=== PATIENT | female | born 1975 | race Caucasian/White ===

== ENCOUNTER → 2017-12-15 10:22 | Outpatient (REF) | payer OTHER, SELFPAY ==
--- NOTE | 2017-12-15 08:50 | PAPFT_PTH ---
PATIENT: Lluvia Gutierres LOC: [facility] U#:[id number] AGE/SX: 49/F ROOM: RE12/15/[address]: Isabella Prajapati NP : 1975 BED: DIS: SPEC #: [id number] RECD: 12/15/17 12:58 STATUS: FRED ZAMORANO #: [id number] GUSTAVO: 12/15/17 08:[address]: Isabella Prajapati NP DEPT: [facility] Cytology RECD BY: Kelli Gar Tissues: 1 - CX/ENDOCX FOR PAP SMEARS Procedures: PAP THIN PREP/UVM Screening HPV DNA PROBE Comments: [id number]
== END ==
LOC: LBN 10:22
PROVIDERS: Visit Provider Nurse Practitioner Women's Health
DX: Z12.4 Encounter for screening for malignant neoplasm of cervix (principal); Z11.51 Encounter for screening for human papillomavirus (HPV)
CPT/HCPCS: 88142; 87624

== ENCOUNTER → 2018-01-02 00:46 | Outpatient (CLI) | payer OTHER, SELFPAY ==
--- NOTE | 2018-01-02 07:26 | DI.REPORT_ITS ---
SYMPTOM/DIAGNOSIS: SCREENING Z12.31 BILATERAL SCREENING MAMMOGRAM: Mammograms were interpreted according to the usual protocol including computer analysis with CAD system, tomosynthesis and C view imaging. Comparison is made with 2012. The breasts are composed of heterogeneously dense fibroglandular tissue , breast density category C. No suspicious masses or suspicious microcalcifications are seen. Two smoothly marginated nodules are again noted in the subareolar region of the left breast. IMPRESSION: Category 2-C, negative mammogram with benign findings. Yearly screening mammography is recommended. SA ASSESSMENT OF FINDINGS: Negative with benign findings. Category 2. Patient will receive a letter notifying them of these results. Bi-RADS category C. The breasts are heterogeneously dense, which may obscure small masses.
== END ==
PROVIDERS: Visit Provider Nurse Practitioner Women's Health
DX: Z12.31 Encounter for screening mammogram for malignant neoplasm of breast (principal)
CPT/HCPCS: 77063; 77067

== ENCOUNTER 2019-01-08 10:12 | Outpatient (CLI) | payer OTHER, SELFPAY ==
[2019-01-08 10:36] LABS: Abs Immature Grans 0.04 k/cumm (0.0-0.09); Absolute Basophil Count 0.04 k/cumm (0.0-0.2); Absolute Eosinophil Count 0.08 k/cumm (0.0-0.7); Absolute Lymphocyte Count 2.88 k/cumm (1.2-3.4); Absolute Monocyte Count 0.58 k/cumm (0.11-0.7); Absolute Neutrophil Count 5.08 k/cumm (1.2-6.7); Basophils % 0.5; Eosinophils % 0.9; HCT 43.5 % (36.0-46.0); HGB 14.5 g/dL (12.0-15.5); Immature Grans % 0.5; Lymphocytes % 33.1; Mean Corp. HGB Concentration 33.3 g/dL (32.0-36.0); Mean Corpuscular Hemoglobin 30.9 pg (27.0-33.0); Mean Corpuscular Volume 92.8 fL (80-95); Mean Platelet Volume 10.5 fL (8.0-11.0); Monocytes % 6.7; Neutrophils % 58.3; Platelet Count 256 x1000/uL (130-400); RBC 4.69 m/cumm (4.00-5.20); RBC Distribution Width 13.8 % (11.7-14.6)
[2019-01-08 11:35] LABS: ALT 24 U/L (14-59); AST 14 U/L (15-37); Albumin 3.9 g/dL (3.4-5.0); Alkaline Phosphatase 53 U/L (46-116); Bilirubin, Direct 0.21 mg/dL (0.00-0.20); Bilirubin, Total 0.7 mg/dL (0.2-1.0); C-Reactive Protein 0.05 mg/dL (0.0-0.3); Total Protein 7.3 g/dL (6.4-8.2)
== END 2019-01-08 10:32 ==
PROVIDERS: Visit Provider Internal Medicine Gastroenterology
DX: K50.00 Crohn's disease of small intestine without complications (principal)
CPT/HCPCS: 36415; 80076; 85025; 86140

== ENCOUNTER 2019-03-06 07:52 | Outpatient (CLI) | payer OTHER, SELFPAY ==
[2019-03-06 08:54] LABS: Abs Immature Grans 0.03 k/cumm (0.0-0.09); Absolute Basophil Count 0.02 k/cumm (0.0-0.2); Absolute Eosinophil Count 0.08 k/cumm (0.0-0.7); Absolute Lymphocyte Count 2.54 k/cumm (1.2-3.4); Absolute Monocyte Count 0.61 k/cumm (0.11-0.7); Absolute Neutrophil Count 5.73 k/cumm (1.2-6.7); Basophils % 0.2; Eosinophils % 0.9; HCT 43.5 % (36.0-46.0); HGB 14.6 g/dL (12.0-15.5); Immature Grans % 0.3; Lymphocytes % 28.2; Mean Corp. HGB Concentration 33.6 g/dL (32.0-36.0); Mean Corpuscular Hemoglobin 31.1 pg (27.0-33.0); Mean Corpuscular Volume 92.8 fL (80-95); Mean Platelet Volume 10.5 fL (8.0-11.0); Monocytes % 6.8; Neutrophils % 63.6; Platelet Count 305 x1000/uL (130-400); RBC 4.69 m/cumm (4.00-5.20); RBC Distribution Width 13.6 % (11.7-14.6); White Blood Cell Count 9.01 k/cumm (4.4-10.8)
[2019-03-06 10:43] LABS: ALT 25 U/L (14-59); AST 20 U/L (15-37); Albumin 4.1 g/dL (3.4-5.0); Alkaline Phosphatase 51 U/L (46-116); Bilirubin, Direct 0.15 mg/dL (0.00-0.20); Bilirubin, Total 0.6 mg/dL (0.2-1.0); Total Protein 7.5 g/dL (6.4-8.2)
[2019-03-06 11:05] LABS: C-Reactive Protein < 0.05 mg/dL (0.0-0.3)
[2019-03-06 12:15] LABS: Vitamin B12 715 pg/mL (193-986)
[2019-03-07 19:47] LABS: Adalimumab QN with Reflex Ab 12.1 mcg/mL
== END 2019-03-06 08:12 ==
PROVIDERS: Visit Provider Internal Medicine Gastroenterology
DX: E53.8 Deficiency of other specified B group vitamins (principal); K50.00 Crohn's disease of small intestine without complications; Z79.899 Other long term (current) drug therapy
CPT/HCPCS: 36415; 80076; 83520; 82607; 85025; 86140

== ENCOUNTER 2019-06-05 14:27 | Outpatient (CLI) | payer OTHER, SELFPAY ==
[2019-06-05 15:19] LABS: Abs Immature Grans 0.03 k/cumm (0.0-0.09); Absolute Basophil Count 0.03 k/cumm (0.0-0.2); Absolute Eosinophil Count 0.15 k/cumm (0.0-0.7); Absolute Lymphocyte Count 3.19 k/cumm (1.2-3.4); Absolute Monocyte Count 0.86 k/cumm (0.11-0.7); Absolute Neutrophil Count 5.41 k/cumm (1.2-6.7); Basophils % 0.3; Eosinophils % 1.6; HCT 42.4 % (36.0-46.0); HGB 14.1 g/dL (12.0-15.5); Immature Grans % 0.3 %; Mean Corp. HGB Concentration 33.3 g/dL (32.0-36.0); Mean Corpuscular Hemoglobin 30.5 pg (27.0-33.0); Mean Corpuscular Volume 91.6 fL (80-95); Mean Platelet Volume 10.7 fL (8.0-11.0); Monocytes % 8.9; Neutrophils % 55.9; Platelet Count 238 x1000/uL (130-400); RBC 4.63 m/cumm (4.00-5.20); RBC Distribution Width 13.2 % (11.7-14.6); White Blood Cell Count 9.67 k/cumm (4.4-10.8)
[2019-06-05 16:06] LABS: ALT 27 U/L (14-59); AST 17 U/L (15-37); Alkaline Phosphatase 51 U/L (46-116); Bilirubin, Total 0.7 mg/dL (0.2-1.0); Total Protein 7.4 g/dL (6.4-8.2)
[2019-06-05 16:13] LABS: C-Reactive Protein < 0.05 mg/dL (0.0-0.3)
[2019-06-08 12:01] LABS: Adalimumab QN with Reflex Ab 9.4 mcg/mL
== END 2019-06-05 14:47 ==
PROVIDERS: Visit Provider Internal Medicine Gastroenterology
DX: K50.00 Crohn's disease of small intestine without complications (principal); Z79.899 Other long term (current) drug therapy
CPT/HCPCS: 36415; 80076; 83520; 85025; 86140

== ENCOUNTER 2019-08-03 02:24 | Outpatient (CLI) | payer OTHER, SELFPAY ==
--- NOTE | 2019-08-03 06:30 | DI.MAMMO_ITS ---
EXAM: MAMMO SCREENING CLINICAL HISTORY: screening,Z12.39 TECHNIQUE: Mammograms were interpreted according to the usual protocol including computer analysis w [employer] CAD system, tomosynthesis and C-view imaging. FINDINGS: The breasts are heterogeneously dense. No dominant mass or clumped microcalcification is identified in either breast. Current examination is compared with previous examinations including December 2017 a nd there has been no gross interval change in appearance in comparison with previous studies. IMPRESSION: No specific evidence of malignancy at this time. Routine screening examinations are suggested at year ly intervals due to the family history of breast carcinoma. Category 1. Breast density, category C. BI-RADS Cat 1 - Negative. Breast Density - Category C - Heterogeneously dense.
== END 2019-08-03 02:44 ==
PROVIDERS: Visit Provider Obstetrics & Gynecology Gynecology
DX: Z12.31 Encounter for screening mammogram for malignant neoplasm of breast (principal); Z80.3 Family history of malignant neoplasm of breast
CPT/HCPCS: 77063; 77067

== ENCOUNTER 2019-08-13 10:38 | Outpatient (REF) | payer OTHER, SELFPAY ==
[2019-08-13 19:27] LABS: HGB 14.7 g/dL (12.0-15.5); Mean Corp. HGB Concentration 34.2 g/dL (32.0-36.0); Mean Corpuscular Hemoglobin 31.1 pg (27.0-33.0); Mean Corpuscular Volume 91.1 fL (80-95); Mean Platelet Volume 11.3 fL (8.0-11.0); Platelet Count 270 x1000/uL (130-400); RBC 4.72 m/cumm (4.00-5.20); RBC Distribution Width 13.5 % (11.7-14.6); White Blood Cell Count 9.01 k/cumm (4.4-10.8)
[2019-08-13 19:44] LABS: ALT 22 U/L (14-59); AST 14 U/L (15-37); Albumin 4.1 g/dL (3.4-5.0); Alkaline Phosphatase 60 U/L (46-116); Anion Gap 11.5 mmol/L (3-11); BUN 18 mg/dL (7-18); Bilirubin, Total 0.6 mg/dL (0.2-1.0); CO2 26.5 mmol/L (21.0-32.0); CREATININE 1.23 mg/dL (0.55-1.02); Chloride 104 mmol/L (98-107); Estimated GFR 47.01 (mL/min/1.73m2); Glucose 94 mg/dL (74-106); Potassium 3.8 mmol/L (3.5-5.1); Sodium 142 mmol/L (136-145); Total Protein 7.6 g/dL (6.4-8.2)
== END 2019-08-13 10:58 ==
LOC: NCHCN 10:38
PROVIDERS: PCP Nurse Practitioner Family; Visit Provider Nurse Practitioner Family
DX: R22.41 Localized swelling, mass and lump, right lower limb (principal); M79.89 Other specified soft tissue disorders
CPT/HCPCS: 80053; 85027; 85379; 85610; 85730

== ENCOUNTER 2019-08-14 12:13 | Outpatient (CLI) | payer OTHER, SELFPAY ==
[2019-08-14 15:24] LABS: INR 0.9 (0.9-1.1); Prothrombin Time 9.5 sec (9.3-11.0)
[2019-08-14 15:41] LABS: D-Dimer 986 ng/mlFEU (<500)
== END 2019-08-14 12:33 ==
PROVIDERS: PCP Nurse Practitioner Family; Visit Provider Nurse Practitioner Family
DX: R22.41 Localized swelling, mass and lump, right lower limb (principal); M79.89 Other specified soft tissue disorders
CPT/HCPCS: 36415; 85379; 85610; 85730

== ENCOUNTER 2019-08-15 11:36 | Outpatient (CLI) | payer OTHER, SELFPAY ==
--- NOTE | 2019-08-15 | DI.US_ITS ---
EXAM: US LOWER EXTREMITY VENOUS RT CLINICAL HISTORY: RT LEG SWELLING, M79.89. TECHNIQUE: Right lower extremity venous ultrasound performed using grayscale, color-flow, and spectr al Doppler analysis. COMPARISON: No exams were available for comparison FINDINGS: The right common femoral, femoral and popliteal veins demonstrate normal compressibility, augmentatio n, and color Doppler. The posterior tibial veins are patent. The greater saphenous vein is free of t hrombus. The lesser saphenous vein shows noncompressibility and thrombus extending over a length of approximately 26 cm.. No hematoma or Meza's cyst is seen. IMPRESSION: Thrombosis in the lesser saphenous vein. No evidence of DVT. DATA REPOSITORY:
== END 2019-08-15 11:56 ==
PROVIDERS: PCP Nurse Practitioner Family; Visit Provider Nurse Practitioner Family
DX: R22.41 Localized swelling, mass and lump, right lower limb (principal); I82.811 Embolism and thrombosis of superficial veins of right lower extremity; M79.89 Other specified soft tissue disorders
CPT/HCPCS: 93971

== ENCOUNTER 2019-09-07 02:05 | Outpatient (CLI) | payer OTHER, SELFPAY ==
[2019-09-07 07:47] LABS: Abs Immature Grans 0.04 k/cumm (0.0-0.09); Absolute Basophil Count 0.01 k/cumm (0.0-0.2); Absolute Eosinophil Count 0.13 k/cumm (0.0-0.7); Absolute Lymphocyte Count 2.47 k/cumm (1.2-3.4); Absolute Monocyte Count 0.67 k/cumm (0.11-0.7); Absolute Neutrophil Count 5.21 k/cumm (1.2-6.7); Basophils % 0.1; Eosinophils % 1.5; HCT 44.2 % (36.0-46.0); HGB 14.9 g/dL (12.0-15.5); Immature Grans % 0.5 %; Mean Corp. HGB Concentration 33.7 g/dL (32.0-36.0); Mean Corpuscular Volume 92.1 fL (80-95); Monocytes % 7.9; Platelet Count 269 x1000/uL (130-400); RBC Distribution Width 13.8 % (11.7-14.6); White Blood Cell Count 8.53 k/cumm (4.4-10.8)
[2019-09-07 08:41] LABS: ALT 35 U/L (14-59); AST 19 U/L (15-37); Alkaline Phosphatase 48 U/L (46-116); Bilirubin, Direct 0.17 mg/dL (0.00-0.20); Bilirubin, Total 0.7 mg/dL (0.2-1.0); Total Protein 7.6 g/dL (6.4-8.2)
[2019-09-07 08:42] LABS: C-Reactive Protein < 0.05 mg/dL (0.0-0.3)
[2019-09-07 09:18] LABS: Vitamin B12 250 pg/mL (193-986)
[2019-09-10 14:52] LABS: Adalimumab QN with Reflex Ab 12.3 mcg/mL
[2019-09-10 23:45] LABS: Calprotectin <15.6 mcg/g
[2019-09-13 05:22] LABS: 25-Hydroxy D Total 29 ng/mL; 25-Hydroxy D2 <4.0 ng/mL; 25-Hydroxy D3 29 ng/mL
== END 2019-09-07 02:25 ==
PROVIDERS: PCP Nurse Practitioner Family; Visit Provider Internal Medicine Gastroenterology
DX: E53.8 Deficiency of other specified B group vitamins (principal); K50.00 Crohn's disease of small intestine without complications; Z79.899 Other long term (current) drug therapy; R21 Rash and other nonspecific skin eruption; K90.89 Other intestinal malabsorption
CPT/HCPCS: 36415; 80076; 82306; 83520; 82607; 83993; 85025; 86140

== ENCOUNTER 2020-07-02 19:31 | Outpatient (REF) | payer OTHER, SELFPAY ==
[2020-07-02 19:38] LABS: CREATININE 0.8 mg/dL (0.55-1.02)
[2020-07-02 20:03] LABS: HCT 44.6 % (36.0-46.0); MCH 30.9 pg (27.0-33.0); MCHC 33.6 % (32.0-36.0); MCV 91.8 fL (80-95); MPV 11.2 fL (8.0-11.0); Platelet Count 278 10^3/uL (130-400); RBC 4.86 10^6/uL (3.93-5.22); RDW 13.2 % (11.7-14.6); RDW-SD 44.7 fL; WBC 9.44 10^3/uL (4.4-10.8)
== END 2020-07-02 19:32 | disposition home or self-care (01) ==
LOC: NCHCN 19:31
PROVIDERS: PCP Nurse Practitioner Family; Visit Provider Physician Assistant
DX: R22.1 Localized swelling, mass and lump, neck (principal)
CPT/HCPCS: 85027; 82565

== ENCOUNTER 2020-08-01 10:06 | Outpatient (REF) | payer OTHER, SELFPAY ==
--- NOTE | 2020-08-01 09:30 | PAPFT_PTH ---
PATIENT: Lluvia Gutierres LOC: [facility] U#:[id number] AGE/SX: 45/F ROOM: RE08/01/[address]: DEBI Carrillo : 1975 BED: DIS: 08/01/2020 SPEC #: [id number] RECD: 08/01/20 12:59 STATUS: FRED REQ #: [id number] GUSTAVO: 08/01/20 09:[address]: Mary Bar DEPT: [facility] Cytology RECD BY: Kelli Gar ENTERED: 08/01/20 12:59 SP TYPE: PAPFT OTHR DR: Fermin Matson Tissues: 1 - CX/ENDOCX FOR PAP SMEARS Procedures: PAP THIN PREP/UVM Screening HPV DNA PROBE Comments: [id number]
== END 2020-08-01 10:07 | disposition home or self-care (01) ==
LOC: LBN 10:06
PROVIDERS: PCP Nurse Practitioner Family; Visit Provider Nurse Practitioner Family
DX: Z12.4 Encounter for screening for malignant neoplasm of cervix (principal); Z11.51 Encounter for screening for human papillomavirus (HPV)
CPT/HCPCS: 88142; 87624

== ENCOUNTER 2020-08-11 02:44 | Outpatient (CLI) | payer OTHER, SELFPAY ==
--- NOTE | 2020-08-11 06:30 | DI.MAMMO_ITS ---
EXAM: MAMMO SCREENING CLINICAL HISTORY: screening,Z12.39. TECHNIQUE: Bilateral full field digital CC and MLO mammographic images were obtained with 3D tomosyn thesis and utilizing computer aided detection (CAD). COMPARISON: Prior mammograms dating back to 2011, the most recent being July 2019. FINDINGS: The fibroglandular tissue is moderately dense, this decreasing sensitivity mammogram for finding hidd en underlying lesions. In the left breast there are 2 nodular densities which appear unchanged from prior mammograms dating back to 2018. Difficult to compared 2012 study as that was not 3D. There are no malignant-appearing microcalcification groups in the region of these nodules.. However, there is a small new microcalci fication group towards the lateral aspect of the left breast located 5 centimetres in from the nipple . Recommend spot magnification view. In the opposite-right breast there is an oval noncalcified nodule in the inferior aspect best seen on the MLO view and this is unchanged from 2018. This oval noncalcified in the nodule measures 8 by 4 millimeters and is located 5 cm in from the nipple. There is also small group of microcalcifications located posteriorly in the right breast which are unchanged from previous. No new architectural distortion or skin thickening-traction. IMPRESSION: Dense bilateral fibroglandular tissue. Bilateral breast nodules. Also new microcalcification group in the left breast, lateral of center which require spot Mag views. Also recommend bilateral breast ultrasound BI-RADS Category 0 - Assessment Incomplete: Need additional imaging evaluation Breast Density - Category C - Heterogeneously dense Breast density Category C or D implies that the patient has dense breast tissue. Dense breast tissue can make it harder to find cancer on a mammogram. Dense breast tissue is also associated with an incr eased risk of breast cancer. This information about the result of the mammogram report was provided to the patient to raise their awareness. Use this report when you speak with the patient about their risks for breast cancer, which includes their family history. At that time, you may recommend additional screening tests (Ultrasoun d or MRI) as these tests may add significant information. A negative radiographic report should not delay biopsy if a dominant or clinically suspicious mass is present. Up to ten percent of cancers are not identified on mammography. A negative report may reinforce clinical impression. Adenosis and dense breasts may obscure an underlying neoplasm. False positive reports average 6 to 10%. Patient will receive a letter notifying them of these results.
== END 2020-08-11 03:04 ==
PROVIDERS: PCP Nurse Practitioner Family; Visit Provider Nurse Practitioner Family
DX: Z12.31 Encounter for screening mammogram for malignant neoplasm of breast (principal); R92.8 Other abnormal and inconclusive findings on diagnostic imaging of breast
CPT/HCPCS: 77063; 77067

== ENCOUNTER 2020-08-14 02:16 | Outpatient (CLI) | payer OTHER, SELFPAY ==
--- NOTE | 2020-08-14 | DI.US_ITS ---
EXAM: BILATERAL COMPLETE BREAST ULTRASOUND CLINICAL HISTORY: F/U MAMMO, LT BREAST NEW MICROCALCIFICATIONS. TECHNIQUE: Complete ultrasound examination of both breasts was performed including all 4 quadrants o f both breasts, both retroareolar regions, and both axillary regions. COMPARISON: Prior mammograms were reviewed. In addition today's diagnostic mammogram was reviewed. FINDINGS: There multiple ultrasound findings in both breasts which are hidden subjacent to her dense fibrogland ular tissue on mammography. LEFT BREAST: At the 3 o'clock position there is a wider than taller 9 x 5 millimeter finding which has the appeara nce of a probable hemorrhagic microcyst. At the 6 o'clock position there is a 7 x 4 millimeter finding which has the appearance of a probable hemorrhagic microcyst. At the 10 o'clock position there are 2 small findings with both have the appearance of hemorrhagic mi crocysts, both measuring approximately 3 millimeters in size. RIGHT BREAST: At the 6 o'clock position there is a 9 x 5 millimeter finding which has the appearance of a probable septated hemorrhagic microcyst and which corresponds to the nodule described on the recent mammogram. At the 7 o'clock position there is a 6 x 4 millimeter finding which has appearance of a hemorrhagic m icrocyst. At the 9 o'clock position there are 3 separate findings which have the appearance of hemorrhagic micr ocysts. The largest of these measures 5 x 4 millimeters. IMPRESSION: Multiple bilateral ultrasound findings in both breasts which are hidden subjacent or dense fibrogland ular tissue on 3D mammography. These have the appearance of probable hemorrhagic microcysts. Approp riate follow-up would be repeat ultrasound of both breasts in 6 months. However, please note that diagnostic left breast mammogram performed today reveals a group of microca lcifications that will require stereotactic biopsy.. Please see that separate mammogram report. Findings and recommendations were discussed by myself with the patient today. In addition, her provider Janna Bar was called by myself with these results and recommendations today. BI-RADS Category 4 - Suspicious Abnormality: Biopsy should be considered Breast Density - Category C - Heterogeneously dense Breast density Category C or D implies that the patient has dense breast tissue. Dense breast tissue can make it harder to find cancer on a mammogram. Dense breast tissue is also associated with an incr eased risk of breast cancer. This information about the result of the mammogram report was provided to the patient to raise their awareness. Use this report when you speak with the patient about their risks for breast cancer, which includes their family history. At that time, you may recommend additional screening tests (Ultrasoun d or MRI) as these tests may add significant information. A negative radiographic report should not delay biopsy if a dominant or clinically suspicious mass is present. Up to ten percent of cancers are not identified on mammography. A negative report may reinforce clinical impression. Adenosis and dense breasts may obscure an underlying neoplasm. False positive reports average 6 to 10%. Patient will receive a letter notifying them of these results.
--- NOTE | 2020-08-14 09:07 | DI.MAMMO_ITS ---
EXAM: DIAGNOSTIC BILATERAL MAMMOGRAM CLINICAL HISTORY: F/U MAMMO, RT BREAST NODULE AND MICROCALCIFICATIONS. TECHNIQUE: Spot views both breasts were performed including 2D spot views of left breast microcalcif ications and 3D of right breast nodule COMPARISON: Prior mammograms were reviewed. This additional imaging was performed due to findings d escribed on the recent screening mammogram of 08/11/2020. FINDINGS: Microcalcification group in the left breast exhibits some pleomorphism and will require stereotactic biopsy. Bilateral breast ultrasound performed today reveals numerous bilateral findings which can be followed in a few months time. Please see that separate ultrasound report IMPRESSION: Left breast microcalcifications which require stereotactic biopsy. Findings are recommendations were discussed by myself with the patient today. Category: 4-suspicious. Biopsy recommended. (Microcalcifications) Breast Density - Category C - Heterogeneously dense Breast density Category C or D implies that the patient has dense breast tissue. Dense breast tissue can make it harder to find cancer on a mammogram. Dense breast tissue is also associated with an incr eased risk of breast cancer. This information about the result of the mammogram report was provided to the patient to raise their awareness. Use this report when you speak with the patient about their risks for breast cancer, which includes their family history. At that time, you may recommend additional screening tests (Ultrasoun d or MRI) as these tests may add significant information. A negative radiographic report should not delay biopsy if a dominant or clinically suspicious mass is present. Up to ten percent of cancers are not identified on mammography. A negative report may reinforce clinical impression. Adenosis and dense breasts may obscure an underlying neoplasm. False positive reports average 6 to 10%. Patient will receive a letter notifying them of these results.
== END 2020-08-14 02:36 ==
PROVIDERS: PCP Nurse Practitioner Family; Visit Provider Nurse Practitioner Family
DX: Z12.13 Encounter for screening for malignant neoplasm of small intestine (principal); R92.8 Other abnormal and inconclusive findings on diagnostic imaging of breast; N60.11 Diffuse cystic mastopathy of right breast; N60.12 Diffuse cystic mastopathy of left breast; R92.0 Mammographic microcalcification found on diagnostic imaging of breast
CPT/HCPCS: 76642; 77063; 77067

== ENCOUNTER 2021-09-20 08:43 | Emergency (ER) | payer OTHER, SELFPAY ==
[2021-09-20 08:49] VITALS: BP 125/76; PULSE 86; RESP 16; TEMP 37.2; O2SAT 97
[2021-09-20 09:34] LABS: Abs Immature Grans 0.03 10^3/uL (0.0-0.06); Absolute Basophil Count 0.02 10^3/uL (0.0-0.2); Absolute Lymphocyte Count 2.73 10^3/uL (1.2-3.4); Absolute Monocyte Count 0.85 10^3/uL (0.1-0.8); Absolute Neutrophil Count 3.79 10^3/uL (1.2-6.7); Basophils % 0.3; Eosinophils % 1.3; HCT 44.3 % (36.0-46.0); HGB 14.6 g/dL (11.2-15.7); Immature Grans % 0.4; Lymphocytes % 36.3; MCH 30.6 pg (27.0-33.0); MCV 93 fL (80-95); MPV 10.7 fL (8.0-11.0); Monocytes % 11.3; Neutrophils % 50.4; Platelet Count 240 10^3/uL (130-400); RBC 4.77 10^6/uL (3.93-5.22); RDW 13.1 % (11.7-14.6); RDW-SD 44.6 fL; WBC 7.52 10^3/uL (4.4-10.8)
[2021-09-20 09:47] LABS: ALT 29 U/L (14-59); AST 17 U/L (15-37); Albumin 3.6 g/dL (3.4-5.0); Alkaline Phosphatase 60 U/L (46-116); Anion Gap 6.2 mmol/L (3-11); BUN 5 mg/dL (7-18); Bilirubin, Total 0.3 mg/dL (0.2-1.0); CO2 27.8 mmol/L (21.0-32.0); Calcium 8.8 mg/dL (8.5-10.1); Chloride 106 mmol/L (98-107); Estimated GFR 59.18 (mL/min/1.73m2); Glucose 81 mg/dL (74-106); Potassium 4.2 mmol/L (3.5-5.1); Sodium 140 mmol/L (136-145); Total Protein 7.8 g/dL (6.4-8.2)
--- NOTE | 2021-09-20 09:48 | ED.GENADUL_ITS ---
Discharge Plan Disposition Patient Disposition: HOME Condition: Stable Discharge Details Clinical Impression: Mastitis Primary Care Provider: Fermin Matson ED Provider: Kelli Ceja Home Meds and New Rx's Prescriptions: New dicloxacillin 500 mg capsule 500 mg PO QID Qty: 40 0RF Continued fluconazole 150 mg tablet 150 mg PO ONCE Qty: 2 0RF Rx Instructions: as a single dose. Repeat at end of antibiotics if necessary. mecobalamin (vitamin B12) 10,000 mcg recon soln IM .q mos 0RF colestipol 1 gram tablet 1 g PO DAILY PRN (Reason: diarrhea) 0RF Held Humira Pen 40 mg/0.8 mL pen injector kit See Rx Instructions SC .COMPLEX 0RF Hold Instructions: Resume on 10/13/21. for fever and infection Rx Instructions: inject one - 40 mg/0.8 mL pen every 2 weeks subcut Discharge Instructions Additional Instructions: warm compresses anbiotics as completed motrin 600 mg every 8 hours tylenol 650 mg every 6 hours yogurt daily while on antibiotics return with new or worsening complaints Discharge Data Discharge Date/Time-TO BE ENTERED AT DEPARTURE: 09/20/21 10:09 Medical Decision Making No abscess noted, exam consistent with likely mastitis, afebrile and nontoxic, CBC within normal limits, mildly elevated CRP, likely multifactorial with hist ory of Crohn's and infection\ We discussed the importance of the outpatient mammogram especially with patient's prior history of precancerous lesions Placed on dicloxacillin which patient received first dose in the emergency department placed on womens wellness list for f/u this week Return precautions discussed and patient expressed understanding Medical Records Medical records reviewed: Yes I reviewed the patient's medical records. Lab Data Lab results reviewed: Yes I reviewed the patient's lab results. HPI General Date/Time Provider Initiated Documentation: 09/20/21 08:44 . HPI Narrative: This 46-year-old female presents with rash and pain to left breast with reported subjective fever on and Tuesday of this week. Has not taken any antipyretics prior to arrival today. History of Crohn's and is immunosuppressed reportedly. Denies any chest pain or shortness of breath. Denies any dizziness or weakness. Does have a history of partial mastectomy secondary to pre cancerous lesion in her left breast. She had surgery performed a year ago. She actually has a follow-up mammogram in October. Related Data Home Medications Medication Instructions Recorded Confirmed adalimumab 40 mg/0.8 mL See Rx Instructions SC .COMPLEX 08/01/19 09/21/21 subcutaneous pen kit (Humira Pen) colestipol 1 gram tablet 1 g PO DAILY PRN tab 08/01/20 09/21/21 mecobalamin (vitamin B12) 10,000 mcg IM .q mos ea 08/01/20 09/21/21 mcg solution for injection dicloxacillin 500 mg capsule 500 mg PO QID #40 cap 09/20/21 09/21/21 fluconazole 150 mg tablet 150 mg PO ONCE #2 tab 09/21/21 09/21/21 Previous Rx's Medication Instructions Recorded dicloxacillin 500 mg capsule 500 mg PO QID #40 cap 09/20/21 fluconazole 150 mg tablet 150 mg PO ONCE #2 tab 09/21/21 Allergies Allergy/AdvReac Type Severity Reaction Status Date / Time codeine Allergy Itching Unverified 09/21/21 15:02 General Stated Complaint: Cellulitis MARYAM: 3 Review of Systems All systems reviewed & are unremarkable except as noted in HPI and below PFSH All Active Problems Mastitis (Acute) 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 [facility] [place]: Atypical ductal and lobular hyperplasia. Tobacco use (Chronic) 07/2019 reports 2-3 cigarettes/day. Medical History (Updated 09/20/21 @ 09:53 by AMARA Aguirre) Normal mammography 07/2019. Breast density category C. Surgical History (Updated 11/07/20 @ 07:49 by Mary Bar NP) Appendectomy 2010 Cholecystectomy 2010 Colectomy small bowel Endometrial Ablation Ligation of fallopian tube 2010 Status post partial mastectomy of left breast Family History (Updated 08/01/20 @ 08:37 by Mary Bar NP) Grandmother Breast cancer after 50 Maternal Aunt Breast cancer before 50 Maternal Aunt Colon cancer before 50 Sister Colon cancer Uterine cancer Social History (Updated 08/01/19 @ 16:36 by Makayla Sierra MD) Smoking/Tobacco Use Status: Current every day Tobacco Type: cigarettes Quit status: not considering quitting Counseling given: provider counseling Smoking risk assessment performed?: Yes Alcohol Intake: current Alcohol Intake frequency: a few times a week Alcohol type: beer Details: Does not feel that alcohol is a problem Drug use: Never Substance use type: marijuana Details: occasionally uses marijuana as a sleep aid Household members: spouse, children and other Details: Son Torres, lives at the house. Faheem Almaguer lives close by Number of Children: 2 current occupation: Works as a financial processing clerk Pets and animals: Yes Pets and animals: dog(s) Sexually active: Yes Do you feel safe at home: Yes Do you feel safe in your relationship?: Yes Female Reproductive History Menstrual Duration of menses: other (Patient had endometrial elation 2014) control method: permanent sterilization History History 2 Para 2 Hx # Term Pregnancies Multiple births Hx # Pregnancies Ectopic pregnancies AB induced Hx Number of Living Children 2 AB spontaneous Exam Const General: cooperative, comfortable and no acute distress Resp Effort & Inspection: normal respiratory effort Cardio Rate: regular rate Skin Full body images: 1. Erythema noted, no induration, tenderness noted, no fluctuance, no drainage from the areola, No mass palpated Neuro General: patient alert Course Vital Signs Vital signs: Vital Signs Temperature 37.2 C 09/20/21 08:49 Pulse 86 09/20/21 08:49 Respiratory Rate 16 09/20/21 08:49 Blood Pressure 125/76 09/20/21 08:49 Pulse Oximetry 97 09/20/21 08:49 Temperature 37.2 C 09/20/21 08:49 Temperature Source Temporal Artery Scan 09/20/21 08:49 Pulse 86 09/20/21 08:49 Respiratory Rate 16 09/20/21 08:49 Respiratory Effort Non-Labored 09/20/21 08:51 Blood Pressure 125/76 09/20/21 08:49 Blood Pressure Position Sitting 09/20/21 08:49 Pulse Oximetry 97 09/20/21 08:49 Oxygen Delivery Method Room Air 09/20/21 08:49 Oxygen Flow Rate 0 09/20/21 08:49 Pain Level 5 09/20/21 08:49 Lab/Test Results Lab/Test Results: Laboratory Tests Range/Units 09/20/21 09/20/21 09:15 09:15 WBC (4.4-10.8) 10^3/uL 7.52 RBC (3.93-5.22) 10^6/uL 4.77 Hgb (11.2-15.7) g/dL 14.6 Hct (36.0-46.0) % 44.3 MCV (80-95) fL 93 MCH (27.0-33.0) pg 30.6 MCHC (32.0-36.0) % 33.0 RDW (11.7-14.6) % 13.1 Plt Count (130-400) 10^3/uL 240 MPV (8.0-11.0) fL 10.7 Immature Gran % 0.4 Neutrophils % 50.4 Lymphocytes % 36.3 Monocytes % 11.3 Eosinophils % 1.3 Basophils % 0.3 Nucleated RBC % (0.0-0.3) % 0.0 Absolute Neutrophils (1.2-6.7) 10^3/uL 3.79 Absolute Lymphocytes (1.2-3.4) 10^3/uL 2.73 Absolute Monocytes (0.1-0.8) 10^3/uL 0.85 H Absolute Eosinophils (0.0-0.7) 10^3/uL 0.10 Absolute Basophils (0.0-0.2) 10^3/uL 0.02 Sodium (136-145) mmol/L 140 Potassium (3.5-5.1) mmol/L 4.2 Chloride (98-107) mmol/L 106 Carbon Dioxide (21.0-32.0) mmol/L 27.8 Anion Gap (3-11) mmol/L 6.2 BUN (7-18) mg/dL 5 L Creatinine (0.55-1.02) mg/dL 1.0 Estimated GFR/1.73 m2 (mL/min/1.73m2) 59.18 Glucose (74-106) mg/dL 81 Calcium (8.5-10.1) mg/dL 8.8 Total Bilirubin (0.2-1.0) mg/dL 0.3 AST (15-37) U/L 17 ALT (14-59) U/L 29 Alkaline Phosphatase (46-116) U/L 60 C-Reactive Protein (0.0-0.3) mg/dL 3.00 H Total Protein (6.4-8.2) g/dL 7.8 Albumin (3.4-5.0) g/dL 3.6 PAWSS Have you Been Recently Intoxicated or Drunk Within the Last 30 days?: No Have you Ever Experienced Previous Episodes of Alcohol Withdrawal?: No Have you ever Experienced Withdrawal Seizures?: No Have you ever Experienced Delirium Tremens(DT)s?: No Have you ever undergone Alcohol Rehabilitation Treatment (i.e, inpt ot outpatient treatment programs)?: No Have you ever Experienced Blackouts?: No Have you ever Combined Alcohol with other Downers within the last 90 days?: No Have you ever Combined Alcohol with any other Substance of Abuse during the last 90 days?: No Positive Blood Alcohol level on Presentation? [PCS.BAL]: No Evidence of Increased Autonomic Activity (i.e. HR>120, tremor, sweating, agitation, nausea)?: No Result: 0
--- NOTE | 2021-09-20 15:15 | NUR.NOTE ---
Kelli has requested the patient be evaluated for mastitis [facility]
== END 2021-09-20 10:09 | disposition home or self-care (01) ==
PROVIDERS: Emergency Provider Physician Assistant; PCP Nurse Practitioner Family
DX: N61.0 Mastitis without abscess (principal)
CPT/HCPCS: 36415; 80053; 99283; 85025; 86140

== ENCOUNTER 2022-05-11 09:35 | Emergency (ER) | payer OTHER, SELFPAY ==
[2022-05-11 09:47] VITALS: BP 121/85; PULSE 94; RESP 18; TEMP 37.1; O2SAT 98
--- NOTE | 2022-05-11 10:24 | ED.GENADUL_ITS ---
Discharge Plan Disposition Patient Disposition: Home Condition: Stable Discharge Details Clinical Impression: Hemorrhoids Primary Care Provider: None,None ED Provider: Gretchen Nixon Home Meds and New Rx's Prescriptions: New hydrocortisone 2.5 % cream with perineal applicator 1 applic NE QD-BID PRN (Reason: hemorrhoids) 7 Days Qty: 30 0RF Rx Instructions: Apply to affected area once or twice daily as needed hydrocortisone acetate 25 mg suppository 25 mg NE DAILY PRN (Reason: hemorrhoids) 7 Days Qty: 12 0RF Rx Instructions: Use as directed Continued Humira Pen 40 mg/0.8 mL pen injector kit See Rx Instructions SC .COMPLEX Hold Instructions: Resume on 10/13/21. for fever and infection Rx Instructions: inject one - 40 mg/0.8 mL pen every 2 weeks subcut mecobalamin (vitamin B12) 10,000 mcg recon soln IM .q mos colestipol 1 gram tablet 1 g PO DAILY PRN (Reason: diarrhea) albuterol sulfate [Proventil HFA] 90 mcg/actuation HFA aerosol inhaler 2 puff inhalation Q6H PRN (Reason: shortness of breath or wheezing) Qty: 8.5 0RF Discharge Instructions Instructions: Hemorrhoids (ED) Additional Instructions: Use the medications as directed. May apply lidocaine to 3-4 times a day as needed. Avoid prolonged sitting or hard surfaces. Please follow-up with general surgery or your manufacturing controller as previously discussed. Follow up with primary care provider in 3-5 days. Return to ED sooner if any worsening or concerns. Increase oral fluids. Please take Tylenol or Ibuprofen with food every 4-6 hours as needed for pain and swelling. Referrals: Joanna Hillman DO [OSTEOPATHIC DOCTOR] - 2 weeks Medical Decision Making 46-year-old female presents to the ER chief complaint of hemorrhoids and rectal pain. Patient reports that she had hemorrhoid labs approximately 8 to 9 years ago. She reports that she has noticed this for the last 3 to 4 months but recently has gotten worse she can feel it when she walks when she is sitting. She is more concerned because she is in for a cruise in 2 days and is requesting that it be lanced. Does not appear to be an incarcerated hernia is flesh-colored. Therefore I will refer patient to general surgery and or patient's GI specialist for I&D of hemorrhoid. I did give her home care and follow-up care. Hydrocortisone cream and rectal suppositories ordered patient is also requesting lidocaine. Patient was given rectal suppository here in the department, lidocaine and prescription for 2.5% cream. This text was generated using [employer] dictation system, please disregard any oddities of phrase or misspellings. HPI General Mode of arrival: ambulatory . Date/Time Provider Initiated Documentation: 05/11/22 09:38 . Limitations to Documentation: no limitations . Information obtained by: patient, RN notes reviewed and old records reviewed . HPI Narrative: 46-year-old female presents to the ER chief complaint of hemorrhoids and rectal pain. Patient reports that she had hemorrhoid labs approximately 8 to 9 years ago. She reports that she has noticed this for the last 3 to 4 months but recently has gotten worse she can feel it when she walks when she is sitting. She is more concerned because she is in for a cruise in 2 days and is requesting that it be lanced. Denies any other associated symptoms or concerns she does have a history of Crohn's disease and reports some diarrhea and recent Arvin been treated for pneumonia with antibiotics. Related Data Home Medications Medication Instructions Recorded Confirmed adalimumab 40 mg/0.8 mL See Rx Instructions subcut .COMPLEX 08/01/19 05/11/22 subcutaneous pen kit (Humira Pen) colestipol 1 gram tablet 1 g PO DAILY PRN diarrhea 08/01/20 05/11/22 mecobalamin (vitamin B12) 10,000 mcg IM .q mos 08/01/20 05/01/22 mcg solution for injection albuterol sulfate 90 mcg/actuation 2 puff inhalation Q6H PRN 04/22/22 05/11/22 aerosol inhaler (Proventil HFA) shortness of breath or wheezing #8.5 grams hydrocortisone 2.5 % topical cream 1 applic NE QD-BID PRN hemorrhoids 05/11/22 with perineal applicator 7 days #30 grams hydrocortisone acetate 25 mg 25 mg NE DAILY PRN hemorrhoids 7 05/11/22 rectal suppository days #12 ea Previous Rx's Medication Instructions Recorded albuterol sulfate 90 mcg/actuation 2 puff inhalation Q6H PRN 04/22/22 aerosol inhaler (Proventil HFA) shortness of breath or wheezing #8.5 grams hydrocortisone 2.5 % topical cream 1 applic NE QD-BID PRN hemorrhoids 05/11/22 with perineal applicator 7 days #30 grams hydrocortisone acetate 25 mg 25 mg NE DAILY PRN hemorrhoids 7 05/11/22 rectal suppository days #12 ea Allergies Allergy/AdvReac Type Severity Reaction Status Date / Time codeine Allergy Itching Unverified 05/11/22 09:50 General Stated Complaint: MOLDER PIPE COVERING MARYAM: 4 Review of Systems All systems reviewed & are unremarkable except as noted in HPI and below Gastrointestinal Gastrointestinal: Reports as per HPI, Denies abdominal pain, Denies hematochezia, Reports loose stools, Denies nausea and Denies vomiting Comments: Reports hemorrhoids PFSH All Active Problems Hemorrhoids (Acute) 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 [facility] [place] left breast stereotactic biopsy: Atypical ductal and lobular hyperplasia. Tobacco use (Chronic) 07/2019 reports 2-3 cigarettes/day. Medical History Normal mammography 07/2019. Breast density category C. Surgical History Appendectomy 2010 Cholecystectomy 2010 Colectomy small bowel Endometrial Ablation Ligation of fallopian tube 2010 Status post partial mastectomy of left breast Family History Grandmother Breast cancer after 50 Maternal Aunt Breast cancer before 50 Maternal Aunt Colon cancer before 50 Sister Colon cancer Uterine cancer Social History Smoking/Tobacco Use Status: Current every day Tobacco Type: cigarettes Quit status: not considering quitting Counseling given: provider counseling Smoking risk assessment performed?: Yes Alcohol Intake: current Alcohol Intake frequency: a few times a week Alcohol type: beer Details: Does not feel that alcohol is a problem Drug use: Never Substance use type: does not use Details: occasionally uses marijuana as a sleep aid Household members: spouse, children and other Details: Faheem Macdonald, lives at the house. Faheem Almaguer lives close by Number of Children: 2 current occupation: Works as a financial services specialist Pets and animals: Yes Pets and animals: dog(s) Sexually active: Yes Do you feel safe at home: Yes Do you feel safe in your relationship?: Yes Female Reproductive History Menstrual Duration of menses: other (Patient had endometrial elation 2014) control method: permanent sterilization History History 2 Para 2 Hx # Term Pregnancies Multiple births Hx # Pregnancies Ectopic pregnancies AB induced Hx Number of Living Children 2 AB spontaneous Exam Resp Effort & Inspection: normal respiratory effort and able to speak in complete sentences Cardio Rate: regular rate Heart Sounds: S1 normal and S2 normal GI Rectal Exam - female: normal sphincter tone and hemorrhoids (Flesh-colored marble size hemorrhoid at 7:00 smaller 1 at approximatly 4:00) Neuro General: patient alert, patient awake, patient oriented x3 and gait normal Cognition: normal cognition Speech: speech normal Course Vital Signs Vital signs: Vital Signs Temperature 37.1 C 05/11/22 09:47 Pulse 94 H 05/11/22 09:47 Respiratory Rate 18 05/11/22 09:47 Blood Pressure 121/85 05/11/22 09:47 Pulse Oximetry 98 05/11/22 09:47 Temperature 37.1 C 05/11/22 09:47 Pulse 94 H 05/11/22 09:47 Respiratory Rate 18 05/11/22 09:47 Respiratory Effort 05/11/22 09:59 Blood Pressure 121/85 05/11/22 09:47 Blood Pressure Position Sitting 05/11/22 09:47 Pulse Oximetry 98 05/11/22 09:47 Oxygen Delivery Method Room Air 05/11/22 09:47 Oxygen Flow Rate 0 05/11/22 09:47 Pain Level 6 05/11/22 09:47
[2022-05-11] MEDS: Hydrocortisone 25 MG SUPP PR (10:53)
[2022-05-11] MEDS: Lidocaine 2% Jelly 6 ML SYR TP (10:53)
== END 2022-05-11 11:05 | disposition home or self-care (01) ==
PROVIDERS: Emergency Provider Registered Nurse Emergency
DX: K64.8 Other hemorrhoids (principal)
CPT/HCPCS: 99283

== ENCOUNTER 2022-07-29 13:18 | Outpatient (REF) | payer OTHER, SELFPAY ==
[2022-07-29 21:13] LABS: Abs Immature Grans 0.02 10^3/uL (0.0-0.06); Absolute Basophil Count 0.06 10^3/uL (0.0-0.2); Absolute Eosinophil Count 0.13 10^3/uL (0.0-0.7); Absolute Lymphocyte Count 3.19 10^3/uL (1.2-3.4); Absolute Monocyte Count 0.64 10^3/uL (0.1-0.8); Absolute Neutrophil Count 4.76 10^3/uL (1.2-6.7); Basophils % 0.7; Eosinophils % 1.5; HCT 45.5 % (36.0-46.0); HGB 15.1 g/dL (11.2-15.7); Immature Grans % 0.2; Lymphocytes % 36.3; MCH 30.4 pg (27.0-33.0); MCHC 33.2 % (32.0-36.0); MCV 92 fL (80-95); MPV 11.1 fL (8.0-11.0); Monocytes % 7.3; Platelet Count 278 10^3/uL (130-400); RBC 4.96 10^6/uL (3.93-5.22); RDW 13.1 % (11.7-14.6); RDW-SD 43.9 fL
[2022-07-29 21:36] LABS: TSH (W/Ref FT4) 0.82 uIU/mL (0.36-3.74)
== END 2022-07-29 13:19 | disposition home or self-care (01) ==
LOC: LBN 13:18
PROVIDERS: Visit Provider Physician Assistant
DX: R53.83 Other fatigue (principal)
CPT/HCPCS: 84443; 85025

== ENCOUNTER 2023-04-16 10:31 | Emergency (ER) | payer OTHER, SELFPAY ==
--- NOTE | 2023-04-16 10:32 | W.ED.GENAD ---
Discharge Plan Discharge Details ED Provider: Praveen Martinez Home Meds and New Rx's Prescriptions: No Action Humira Pen 40 mg/0.8 mL pen injector kit See Rx Instructions SC .COMPLEX Hold Instructions: Resume on 10/13/21. for fever and infection Rx Instructions: inject one - 40 mg/0.8 mL pen every 2 weeks subcut omeprazole 20 mg capsule,delayed release(DR/EC) 20 mg PO DAILY Qty: 30 0RF mecobalamin (vitamin B12) 10,000 mcg recon soln IM .q mos colestipol 1 gram tablet 1 g PO DAILY PRN (Reason: diarrhea) albuterol sulfate [Proventil HFA] 90 mcg/actuation HFA aerosol inhaler 2 puff inhalation Q6H PRN (Reason: shortness of breath or wheezing) Qty: 8.5 0RF HPI General Date/Time Provider Initiated Documentation: 04/16/23 10:32. HPI Narrative: MDM Chronic conditions affecting the care of the patient: [] History obtained from an outside historian: [] External record review: [] Diagnostic interpretations performed by me: Per my independent interpretation chest x-ray shows: Per my independent interpretation EKG shows: Medications: [] Social determinants of health affecting disposition: [] Management discussed with: [] Treatment/interventions considered: [] Response to therapies provided: [] HPI [ ] Exam General: Well-appearing in no acute distress speaking in complete sentences. Head: Normocephalic, atraumatic. Eye:[Pupils equal, round reactive to light.] Extraocular eye movements intact. No conjunctival injection. No scleral icterus. Ear, nose, mouth, throat: Grossly normal inspection. Normal voice, handling secretions normally. Neck: Trachea midline. Cardiovascular: Well-perfused distal extremities. Respiratory: Nonlabored respiration. Gastrointestinal: Nondistended abdomen. Musculoskeletal: No edema. Moving all 4 extremities spontaneously. Skin: Normal for age and race, grossly normal temperature and turgor. No acute rash. Neurologic: Alert and appropriate, no apparent acute deficits. Psychiatric: Mood and manner are appropriate. Grooming and personal hygiene are appropriate. Related Data Home Medications Medication Instructions Recorded Confirmed adalimumab 40 mg/0.8 mL See Rx Instructions subcut .COMPLEX 08/01/19 07/29/22 subcutaneous pen kit (Humira Pen) colestipol 1 gram tablet 1 g PO DAILY PRN diarrhea 08/01/20 07/29/22 mecobalamin (vitamin B12) 10,000 mcg IM .q mos 08/01/20 07/29/22 mcg solution for injection albuterol sulfate 90 mcg/actuation 2 puff inhalation Q6H PRN 04/22/22 07/29/22 aerosol inhaler (Proventil HFA) shortness of breath or wheezing #8.5 grams omeprazole 20 mg capsule,delayed 20 mg PO DAILY #30 caps 07/29/22 07/29/22 release Previous Rx's Medication Instructions Recorded albuterol sulfate 90 mcg/actuation 2 puff inhalation Q6H PRN 04/22/22 aerosol inhaler (Proventil HFA) shortness of breath or wheezing #8.5 grams omeprazole 20 mg capsule,delayed 20 mg PO DAILY #30 caps 07/29/22 release Allergies Allergy/AdvReac Type Severity Reaction Status Date / Time codeine Allergy Itching Unverified 07/29/22 11:47 General MARYAM: 4 PFSH All Active Problems 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 [facility] [place] left breast stereotactic biopsy: Atypical ductal and lobular hyperplasia. Tobacco use (Chronic) 07/2019 reports 2-3 cigarettes/day. Medical History Normal mammography 07/2019. Breast density category C. Surgical History Appendectomy 2010 Cholecystectomy 2010 Colectomy small bowel Endometrial Ablation Ligation of fallopian tube 2010 Status post partial mastectomy of left breast Family History Grandmother Breast cancer after 50 Maternal Aunt Breast cancer before 50 Maternal Aunt Colon cancer before 50 Sister Colon cancer Uterine cancer Social History Smoking/Tobacco Use Status: Current every day Tobacco Type: cigarettes Quit status: not considering quitting Counseling given: provider counseling Smoking risk assessment performed?: Yes Alcohol Intake: current Alcohol Intake frequency: a few times a week Alcohol type: beer Details: Does not feel that alcohol is a problem Drug use: Never Substance use type: does not use Details: occasionally uses marijuana as a sleep aid Household members: spouse, children and other Details: Son Torres, lives at the house. Son Tripp lives close by Number of Children: 2 current occupation: Works as a financial sales assistant Pets and animals: Yes Pets and animals: dog(s) Sexually active: Yes Do you feel safe at home: Yes Do you feel safe in your relationship?: Yes Female Reproductive History Menstrual Duration of menses: other (Patient had endometrial elation 2014) control method: permanent sterilization History History 2 Para 2 Hx # Term Pregnancies Multiple births Hx # Pregnancies Ectopic pregnancies AB induced Hx Number of Living Children 2 AB spontaneous
[2023-04-16 10:35] VITALS: BP 135/89; PULSE 80; RESP 20; TEMP 37.2; O2SAT 99
--- NOTE | 2023-04-16 10:35 | W.EDPROG ---
Date of service: 04/16/23 Time of Service: 10:35 Medical Decision Making I had initially signed up to evaluate this patient but I did not see her nor participate in her care. Discharge Plan Discharge Details ED Provider: Provider,Temporary Home Meds and New Rx's Prescriptions: No Action Humira Pen 40 mg/0.8 mL pen injector kit See Rx Instructions SC .COMPLEX Hold Instructions: Resume on 10/13/21. for fever and infection Rx Instructions: inject one - 40 mg/0.8 mL pen every 2 weeks subcut omeprazole 20 mg capsule,delayed release(DR/EC) 20 mg PO DAILY Qty: 30 0RF mecobalamin (vitamin B12) 10,000 mcg recon soln IM .q mos colestipol 1 gram tablet 1 g PO DAILY PRN (Reason: diarrhea) albuterol sulfate [Proventil HFA] 90 mcg/actuation HFA aerosol inhaler 2 puff inhalation Q6H PRN (Reason: shortness of breath or wheezing) Qty: 8.5 0RF
--- NOTE | 2023-04-16 11:04 | ED.GENADUL_ITS ---
Discharge Plan Disposition Patient Disposition: Home Discharge Details Clinical Impression: COVID Primary Care Provider: Jude Barth ED Provider: Soy Holloway Home Meds and New Rx's Prescriptions: Continued Humira Pen 40 mg/0.8 mL pen injector kit See Rx Instructions SC .COMPLEX Hold Instructions: Resume on 10/13/21. for fever and infection Rx Instructions: inject one - 40 mg/0.8 mL pen every 2 weeks subcut omeprazole 20 mg capsule,delayed release(DR/EC) 20 mg PO DAILY Qty: 30 0RF Hold Instructions: Pt Stopped/Never Started mecobalamin (vitamin B12) 10,000 mcg recon soln 10,000 mcg IM .q mos colestipol 1 gram tablet 1 g PO DAILY PRN (Reason: diarrhea) albuterol sulfate [Proventil HFA] 90 mcg/actuation HFA aerosol inhaler 2 puff inhalation Q6H PRN (Reason: shortness of breath or wheezing) Qty: 8.5 0RF Discharge Instructions Instructions: COVID-19 (Coronavirus Disease 2019) (ED) Additional Instructions: At this time I feel that your headache is secondary to your viral infection. Please stay well-hydrated and get plenty of rest during your illness. It is recommended that you quarantine due to a positive COVID test and until Tuesday and then wear a mask for at least 5 additional days when you are around others. Take the provided Paxlovid as directed on packaging and return to the emergency department for any new or significant worsening of symptoms otherwise follow-up with your primary care provider if not improving in the next week. Contact your GI doctor to discuss your Humira injections and additional scheduling given your positive result. Referrals: Jude Barth [Primary Care Provider] - 1 week (If not improving) Discharge Data Discharge Date/Time-TO BE ENTERED AT DEPARTURE: 04/16/23 12:52 Medical Decision Making Patient presenting the emergency department for chief complaint of headache. Patient states that on morning she woke up not feeling well. She initially tested negative for COVID but later that day symptoms increased and she retested and then was positive. Patient states standard cold symptoms but increase headache. Patient has any focal neurological symptoms. Exam is noncontributory, stable vital signs. Patient does have contributing past medical history of Crohn's on immunosuppressants. She has been taking Tylenol and acetaminophen with minimal relief. Given that patient is immunosuppressed and review of previous labs show borderline GFR for Paxlovid dosing will check patient's labs and pending those results we will give patient IV fluids and Decadron to see if this helps with her headache. Patient had just taken [id number] just prior to arrival so we will wait on any additional analgesia. Reviewed patient's labs and CBC shows all findings within normal limits, CMP shows slightly elevated chloride and creatinine with slightly low calcium but these findings I feel are nondiagnostic and negligible. Magnesium is slightly low at 1.6 so we will replete orally. Patient's GFR is 61 so she was ordered standard dose of Paxlovid. Reassessed patient after fluids and Decadron. She states minimal relief but no significant worsening of symptoms. Discussed conservative management of viral symptoms along with return and follow-up precautions. Patient will continue Paxlovid for full course at home and was given to go pack. After discussion of diagnosis and plan of care patient has no further needs, questions, or concerns and states clear understanding to return to the emergency department for any worsening symptoms. This documentation was generated using [employer] dictation system, please disregard any oddities of phrase or misspellings. Lab Data Lab results reviewed: Yes I reviewed the patient's lab results. HPI General Mode of arrival: ambulatory . Date/Time Provider Initiated Documentation: 04/16/23 10:32 . Limitations to Documentation: no limitations . Information obtained by: patient and RN notes reviewed . History of Present Illness 47 year old F presents to the emergency department with the chief complaint of Headache, described as moderate, Quality is described as aching, and is localized to the head. Patient started experiencing this day(s) (3) and it has been constant. No relieving factors improve symptom(s), No exacerbating factors reported . Patient did receive the following treatments prior to arrival, NSAID Related Data Home Medications Medication Instructions Recorded Confirmed adalimumab 40 mg/0.8 mL See Rx Instructions subcut .COMPLEX 08/01/19 04/16/23 subcutaneous pen kit (Humira Pen) colestipol 1 gram tablet 1 g PO DAILY PRN diarrhea 08/01/20 04/16/23 mecobalamin (vitamin B12) 10,000 10,000 mcg IM .q mos 03/19/21 12/02/23 mcg solution for injection albuterol sulfate 90 mcg/actuation 2 puff inhalation Q6H PRN 04/22/22 04/16/23 aerosol inhaler (Proventil HFA) shortness of breath or wheezing #8.5 grams omeprazole 20 mg capsule,delayed 20 mg PO DAILY #30 caps 07/29/22 04/16/23 release Previous Rx's Medication Instructions Recorded albuterol sulfate 90 mcg/actuation 2 puff inhalation Q6H PRN 04/22/22 aerosol inhaler (Proventil HFA) shortness of breath or wheezing #8.5 grams omeprazole 20 mg capsule,delayed 20 mg PO DAILY #30 caps 07/29/22 release Allergies Allergy/AdvReac Type Severity Reaction Status Date / Time codeine Allergy Itching Unverified 04/16/23 10:38 General Stated Complaint: RespSymp MARYAM: 4 Review of Systems Constitutional Constitutional: Reports fever(s), Reports headache(s) and Reports malaise Eyes Eyes: Denies eye discharge ENT Ears, Nose, Mouth, and Throat: Reports headache(s), Reports nasal congestion, Denies neck pain and Denies throat swelling Cardiovascular Cardiovascular: Denies chest pain and Denies dyspnea Respiratory Respiratory: Denies cough and Denies dyspnea Musculoskeletal Musculoskeletal: Denies joint swelling and Denies neck pain Integumentary/Breasts Skin/Breast: Denies rash Neurologic Neurologic: Reports headache(s) Allergic/Immunologic Allergic/Immunologic: Denies throat swelling PFSH All Active Problems COVID (Acute) Menorrhagia with regular cycle (Acute 03/18/15) s/p Novasure EM ablation 03/2015 Crohn's disease (Chronic 08/05/14) 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 [facility] [place] breast stereotactic biopsy: Atypical ductal and lobular hyperplasia. Tobacco use (Chronic) 07/2019 reports 2-3 cigarettes/day. Medical History Normal mammography 07/2019. Breast density category C. Surgical History Status post partial mastectomy of left breast Ligation of fallopian tube 2010 Endometrial Ablation Colectomy small bowel Cholecystectomy 2010 Appendectomy 2009 Family History Grandmother Breast cancer after 50 Maternal Aunt Breast cancer before 50 Maternal Aunt Colon cancer before 50 Sister Colon cancer Uterine cancer Social History Smoking/Tobacco Use Status: Current every day Tobacco Type: cigarettes Quit status: not considering quitting Counseling given: provider counseling Smoking risk assessment performed?: Yes Alcohol Intake: current Alcohol Intake frequency: a few times a week Alcohol type: beer Details: Does not feel that alcohol is a problem Drug use: Never Substance use type: does not use Details: occasionally uses marijuana as a sleep aid Household members: spouse, children and other Details: Son Torres, lives at the house. Son Tripp lives close by Housing: apartment Number of Children: 2 current occupation: Works as a financial systems administrator Pets and animals: Yes Pets and animals: dog(s) Sexually active: Yes Do you feel safe at home: Yes Do you feel safe in your relationship?: Yes Female Reproductive History Menstrual Duration of menses: other (Patient had endometrial elation 2014) control method: permanent sterilization History History 2 Para 2 Hx # Term Pregnancies Multiple births Hx # Pregnancies Ectopic pregnancies AB induced Hx Number of Living Children 2 AB spontaneous Exam Const General: cooperative, comfortable and no acute distress Orientation: alert and awake HENMT Head: normal to inspection, normocephalic and atraumatic Ears: hearing grossly normal bilaterally and TM's normal bilaterally General nose exam: external nose normal Face and sinus: no erythema and sinus tenderness ethmoid and maxillary Mouth: oral mucosae normal, no drooling, no muffled voice and no trismus Throat: posterior oropharynx normal Neck Neck: normal visual inspection, full ROM, no meningeal signs, trachea midline and supple Resp Effort & Inspection: normal respiratory effort and able to speak in complete sentences Auscultation: clear to auscultation bilaterally Cardio Rate: regular rate Rhythm: regular rhythm Heart Sounds: S1 normal, S2 normal, normal S1 and S2, no click, no gallops, no murmurs and no rubs Skin General skin exam: no rashes or lesions noted and dry skin (warm) Neuro General: patient alert, patient awake, patient oriented x3, gait normal, moves all extremities, no meningeal signs and CN's II-XI intact bilaterally Cognition: normal cognition Speech: speech normal Course Vital Signs Vital signs: Vital Signs Temperature 37.2 C 04/16/23 10:35 Pulse 80 04/16/23 10:35 Respiratory Rate 20 04/16/23 10:35 Blood Pressure 135/89 04/16/23 10:35 Pulse Oximetry 99 04/16/23 10:35 Temperature 37.2 C 04/16/23 10:35 Pulse 80 04/16/23 10:35 Respiratory Rate 20 04/16/23 10:35 Respiratory Effort Normal 04/16/23 10:41 Blood Pressure 135/89 04/16/23 10:35 Blood Pressure Position Sitting 04/16/23 10:35 Pulse Oximetry 99 04/16/23 10:35 Oxygen Delivery Method Room Air 04/16/23 10:35 Oxygen Flow Rate 0 04/16/23 10:35 Pain Level 8 04/16/23 10:35
[2023-04-16] MEDS: Normal Saline 1,000 ML 1000 ML IV (11:12)
[2023-04-16] MEDS: Dexamethasone 10 MG/ML VIAL IVP (11:12)
[2023-04-16 11:17] LABS: Abs Immature Grans 0.01 10^3/uL (0.0-0.06); Absolute Basophil Count 0.03 10^3/uL (0.0-0.2); Absolute Eosinophil Count 0.03 10^3/uL (0.0-0.7); Absolute Lymphocyte Count 2.75 10^3/uL (1.2-3.4); Absolute Monocyte Count 0.56 10^3/uL (0.1-0.8); Absolute Neutrophil Count 1.76 10^3/uL (1.2-6.7); Basophils % 0.6; Eosinophils % 0.6; HCT 44.1 % (36.0-46.0); HGB 14.3 g/dL (11.2-15.7); Immature Grans % 0.2; Lymphocytes % 53.5; MCH 30.1 pg (27.0-33.0); MCHC 32.4 % (32.0-36.0); MCV 93 fL (80-95); MPV 10.8 fL (8.0-11.0); Monocytes % 10.9; Neutrophils % 34.2; Platelet Count 214 10^3/uL (130-400); RBC 4.75 10^6/uL (3.93-5.22); RDW 13.3 % (11.7-14.6); RDW-SD 45.5 fL; WBC 5.14 10^3/uL (4.4-10.8)
[2023-04-16 11:32] LABS: ALT 32 U/L (14-59); AST 18 U/L (15-37); Albumin 3.5 g/dL (3.4-5.0); Alkaline Phosphatase 60 U/L (46-116); Anion Gap 7.6 mmol/L (3-11); BUN 12 mg/dL (7-18); Bilirubin, Total 0.2 mg/dL (0.2-1.0); CO2 25.4 mmol/L (21.0-32.0); CREATININE 1.1 mg/dL (0.55-1.02); Calcium 8.4 mg/dL (8.5-10.1); Chloride 109 mmol/L (98-107); Glucose 97 mg/dL (74-106); Magnesium 1.6 mg/dL (1.8-2.4); Potassium 3.7 mmol/L (3.5-5.1); Sodium 142 mmol/L (136-145); Total Protein 7.3 g/dL (6.4-8.2)
[2023-04-16] MEDS: Magnesium Oxide 400 MG TAB PO (11:57)
== END 2023-04-16 12:52 | disposition home or self-care (01) ==
PROVIDERS: Emergency Provider Nurse Practitioner Family; PCP Physician Assistant
DX: U07.1 COVID-19 (principal); Z11.52 Encounter for screening for COVID-19; R50.9 Fever, unspecified; F17.200 Nicotine dependence, unspecified, uncomplicated; K50.90 Crohn's disease, unspecified, without complications
CPT/HCPCS: 00123; 36415; 80053; 96361; 96374; 99284; 83735; 85025; 99283; J1100

== ENCOUNTER 2023-08-09 12:09 | Outpatient (CLI) | payer OTHER, SELFPAY ==
[2023-08-09 11:10] LABS: Abs Immature Grans 0.04 10^3/uL (0.0-0.06); Absolute Basophil Count 0.06 10^3/uL (0.0-0.2); Absolute Eosinophil Count 0.11 10^3/uL (0.0-0.7); Absolute Lymphocyte Count 2.92 10^3/uL (1.2-3.4); Absolute Monocyte Count 0.55 10^3/uL (0.1-0.8); Absolute Neutrophil Count 5.27 10^3/uL (1.2-6.7); Basophils % 0.7; Eosinophils % 1.2; HCT 46.4 % (36.0-46.0); HGB 15.2 g/dL (11.2-15.7); Immature Grans % 0.4; Lymphocytes % 32.6; MCH 30.8 pg (27.0-33.0); MCHC 32.8 % (32.0-36.0); MCV 94 fL (80-95); MPV 9.9 fL (8.0-11.0); Monocytes % 6.1; Platelet Count 336 10^3/uL (130-400); RBC 4.94 10^6/uL (3.93-5.22); RDW 13.2 % (11.7-14.6); RDW-SD 45.8 fL; WBC 8.95 10^3/uL (4.4-10.8)
[2023-08-09 11:46] LABS: ALT 24 U/L (14-59); AST 17 U/L (15-37); Albumin 3.8 g/dL (3.4-5.0); Alkaline Phosphatase 80 U/L (46-116); Bilirubin, Direct 0.1 mg/dL (0.0-0.2); Bilirubin, Total 0.4 mg/dL (0.2-1.0); Total Protein 8.2 g/dL (6.4-8.2)
[2023-08-09 11:48] LABS: C-Reactive Protein < 0.50 mg/dL (<or=0.5)
== END 2023-08-09 12:10 | disposition home or self-care (01) ==
LOC: LBO 12:11
PROVIDERS: PCP Physician Assistant; Visit Provider Internal Medicine Gastroenterology
DX: K50.019 Crohn's disease of small intestine with unspecified complications (principal); Z79.899 Other long term (current) drug therapy
CPT/HCPCS: 36415; 80076; 85025; 86140

== ENCOUNTER 2023-09-12 18:21 | Outpatient (CLI) | payer OTHER, SELFPAY ==
[2023-09-12 10:56] LABS: Abs Immature Grans 0.06 10^3/uL (0.0-0.06); Absolute Basophil Count 0.05 10^3/uL (0.0-0.2); Absolute Eosinophil Count 0.18 10^3/uL (0.0-0.7); Absolute Lymphocyte Count 2.63 10^3/uL (1.2-3.4); Absolute Neutrophil Count 8.35 10^3/uL (1.2-6.7); Basophils % 0.4; Eosinophils % 1.5; HCT 45.6 % (36.0-46.0); HGB 14.8 g/dL (11.2-15.7); Immature Grans % 0.5; Lymphocytes % 21.8; MCH 30.2 pg (27.0-33.0); MCHC 32.5 % (32.0-36.0); MCV 93 fL (80-95); MPV 10.2 fL (8.0-11.0); Monocytes % 6.6; Neutrophils % 69.2; Platelet Count 247 10^3/uL (130-400); RDW 13.4 % (11.7-14.6); RDW-SD 45.9 fL; WBC 12.06 10^3/uL (4.4-10.8)
[2023-09-12 11:38] LABS: ALT 26 U/L (14-59); AST 16 U/L (15-37); Albumin 3.6 g/dL (3.4-5.0); Alkaline Phosphatase 75 U/L (46-116); Bilirubin, Direct 0.1 mg/dL (0.0-0.2); Bilirubin, Total 0.4 mg/dL (0.2-1.0); C-Reactive Protein 1.66 mg/dL (<or=0.5); Total Protein 7.9 g/dL (6.4-8.2)
== END 2023-09-12 18:22 | disposition home or self-care (01) ==
LOC: LBO 18:23
PROVIDERS: PCP Physician Assistant; Visit Provider Internal Medicine Gastroenterology
DX: K50.019 Crohn's disease of small intestine with unspecified complications (principal); Z79.899 Other long term (current) drug therapy
CPT/HCPCS: 36415; 80076; 85025; 86140

== ENCOUNTER 2024-02-14 10:48 | Outpatient (CLI) | payer OTHER, SELFPAY ==
[2024-02-14 11:09] LABS: Abs Immature Grans 0.03 10^3/uL (0.0-0.06); Absolute Basophil Count 0.04 10^3/uL (0.0-0.2); Absolute Eosinophil Count 0.17 10^3/uL (0.0-0.7); Absolute Lymphocyte Count 2.98 10^3/uL (1.2-3.4); Absolute Monocyte Count 0.56 10^3/uL (0.1-0.8); Absolute Neutrophil Count 5.77 10^3/uL (1.2-6.7); Basophils % 0.4 %; Eosinophils % 1.8 %; HCT 45.6 % (36.0-46.0); Immature Grans % 0.3 %; Lymphocytes % 31.2 %; MCH 30.7 pg (27.0-33.0); MCHC 32.9 % (32.0-36.0); MCV 93 fL (80-95); MPV 10.6 fL (8.0-11.0); Monocytes % 5.9 %; Neutrophils % 60.4 %; Platelet Count 277 10^3/uL (130-400); RBC 4.88 10^6/uL (3.93-5.22); RDW 13.4 % (11.7-14.6); RDW-SD 45.8 fL; WBC 9.55 10^3/uL (4.4-10.8)
[2024-02-14 12:07] LABS: ALT 23 U/L (14-59); AST 17 U/L (15-37); Albumin 3.7 g/dL (3.4-5.0); Alkaline Phosphatase 82 U/L (46-116); Bilirubin, Direct 0.1 mg/dL (0.0-0.2); Bilirubin, Total 0.62 mg/dL (0.2-1.0); Total Protein 7.8 g/dL (6.4-8.2)
[2024-02-14 12:08] LABS: C-Reactive Protein < 0.50 mg/dL (<or=0.5)
[2024-02-14 12:31] LABS: ALT 22 U/L (14-59); AST 16 U/L (15-37); Albumin 3.8 g/dL (3.4-5.0); Alkaline Phosphatase 85 U/L (46-116); Anion Gap 10.8 mmol/L (3-11); BUN 13 mg/dL (7-18); Bilirubin, Total 0.63 mg/dL (0.2-1.0); CO2 26.2 mmol/L (21.0-32.0); Calcium 9.3 mg/dL (8.5-10.1); Chloride 102 mmol/L (98-107); Estimated GFR 68.63 (mL/min/1.73m2); Glucose 99 mg/dL (74-106); Potassium 3.7 mmol/L (3.5-5.1); Sodium 139 mmol/L (136-145); TSH 0.82 uIU/Ml (0.36-3.74); Total Protein 7.8 g/dL (6.4-8.2); Vitamin D 25 Total 33.7 ng/mL (30-100)
[2024-02-14 13:11] LABS: FREE T4 0.95 ng/dL (0.76-1.46)
== END 2024-02-14 10:49 | disposition home or self-care (01) ==
LOC: LBO 10:50
PROVIDERS: PCP Physician Assistant; Visit Provider Internal Medicine Gastroenterology
DX: Z00.00 Encounter for general adult medical examination without abnormal findings (principal); K50.019 Crohn's disease of small intestine with unspecified complications; Z79.899 Other long term (current) drug therapy
CPT/HCPCS: 36415; 80053; 80076; 82306; 84439; 84443; 85025; 86140

== ENCOUNTER 2024-03-12 01:28 | Outpatient (CLI) | payer OTHER, SELFPAY ==
--- NOTE | 2024-03-12 14:00 | DI.MRI_ITS ---
Exam(s) MR BRAIN WO EXAM: MR BRAIN WO CLINICAL HISTORY: DIZZINESS AND GIDDINESS R42 W/ RIGHT EYE VISUAL DISTURBANCE TECHNIQUE: Multiplanar multisequence MRI of the brain was performed. COMPARISON: No exams were available for comparison FINDINGS: VENTRICLES AND EXTRA AXIAL SPACES: Normal in size and morphology for the patient's age. MIDLINE SHIFT: None. CEREBRAL PARENCHYMA: No focus of restricted diffusion to suggest acute infarct. No space-occupying le jacob identified. No significant atrophy. No abnormal white matter foci. BRAINSTEM/CEREBELLUM: Normal. VISUALIZED PARANASAL SINUSES: Clear. MASTOIDS:Clear. Vasculature: Normal flow void. PITUITARY GLAND: Unremarkable. ORBITS: Unremarkable. IMPRESSION: Unremarkable MRI of the brain. DATA REPOSITORY:
== END 2024-03-12 01:48 ==
LOC: DI 01:28
PROVIDERS: PCP Physician Assistant; Visit Provider Physician Assistant
DX: R42 Dizziness and giddiness (principal); H53.9 Unspecified visual disturbance
CPT/HCPCS: 70551

== ENCOUNTER 2024-04-18 10:42 | Outpatient (REF) | payer OTHER, SELFPAY ==
[2024-04-18 15:48] LABS: Calculated LDL 92 mg/dL (<100); Cholesterol 185 mg/dL (<200); HDL Cholesterol 73 mg/dL (40-60); Triglyceride 101 mg/dL (<150)
== END 2024-04-18 10:43 | disposition home or self-care (01) ==
LOC: NCHCN 10:42
PROVIDERS: PCP Physician Assistant; Visit Provider Physician Assistant
DX: Z13.220 Encounter for screening for lipoid disorders (principal)
CPT/HCPCS: 80061

== ENCOUNTER 2025-02-05 05:00 | Outpatient (CLI) | payer OTHER, SELFPAY ==
[2025-02-05 17:25] LABS: Abs Immature Grans 0.03 10^3/uL (0.0-0.06); HCT 44.3 % (36.0-46.0); HGB 14.8 g/dL (11.2-15.7); Immature Grans % 0.3 %; MCH 30.0 pg (27.0-33.0); MCHC 33.4 % (32.0-36.0); MCV 90 fL (80-95); MPV 10.6 fL (8.0-11.0); Platelet Count 264 10^3/uL (130-400); RBC 4.94 10^6/uL (3.93-5.22); RDW 13.8 % (11.7-14.6); RDW-SD 45.0 fL; WBC 9.43 10^3/uL (4.4-10.8)
[2025-02-05 18:36] LABS: ALT 23 U/L (14-59); AST 15 U/L (15-37); Albumin 4.0 g/dL (3.4-5.0); Alkaline Phosphatase 72 U/L (46-116); Bilirubin, Direct 0.1 mg/dL (0.0-0.2); Bilirubin, Total 0.4 mg/dL (0.2-1.0); Total Protein 7.4 g/dL (6.4-8.2)
[2025-02-05 18:37] LABS: C-Reactive Protein < 0.50 mg/dL (<or=0.5)
== END 2025-02-05 05:01 ==
LOC: LBO 02-06 05:00
PROVIDERS: PCP Physician Assistant; Visit Provider Internal Medicine Gastroenterology
DX: K50.00 Crohn's disease of small intestine without complications (principal); E53.8 Deficiency of other specified B group vitamins; Z79.899 Other long term (current) drug therapy
CPT/HCPCS: 36415; 80076; 85025; 86140